=== PATIENT | male | born 1955 | race Caucasian/White ===

== ENCOUNTER 2017-09-26 02:42 | Inpatient (IN) | payer OTHER ==
[~2017-09-26] VITALS: Ht 172.7 cm; Wt 129.3 kg
[~2017-09-26 02:42] MED LIST: AMLODIPINE BESYL5 M1 PO; ASPIRIN EC81 M1 PO; DIOVAN160 MG PO; FERROUS SULFAT325 M3 PO
--- NOTE | 2017-09-26 12:19 | Admission Core Measures ---
Acute Coronary Syndrome (CM) ACS Core Measures Acute Coronary Syndrome Diagnosis No Congestive Heart Failure (NEW) CHF Core Measures Congestive Heart Failure Diagnosis No Cerebrovascular Accident CVA Core Measures CVA/TIA Diagnosis No Venous Thromboembolism VTE Core Isael (View Protocol) VTE Risk Factors Surgery No Mechanical VTE Prophylaxis d/t N/A MechProphylax Ordered No VTE Pharm Prophylaxis d/t NA PharmProphylax ordered Problem List As ranked by this Provider includes Assessment & Plan 1. Primary osteoarthritis of left knee HOME MEDS Home Med List Amlodipine Besylate 5 MG TABLET 1 TAB PO DAILY BP (Reported) Aspirin (Ecotrin*) 81 MG TABLET.DR 1 TAB PO DAILY HEART/BLOOD (Reported) Ferrous Sulfate 325 MG (65 MG IRON) TABLET 1 TAB PO DAILY SUPPLEMENT ( Reported) Valsartan (Diovan) 160 MG TABLET 1 TAB PO DAILY HEART/BP (Reported)
--- NOTE | 2017-09-26 12:22 | Surgical Discharge Summary ---
Visit Information Visit Dates Admission Date: 09/26/17 Discharge Date: 09/28/17 History of Present Illness Chief Complaint: Left knee pain Medical History Isolation History: Standard Surgical History Pertinent Surgical History: L TKR on 09/26/17 Psychosocial History What is Your Primary Language? Estonian Review of Systems: Refer to H&P Hospital Course Course Attending Physician: Sarah PARIS,Jeff Primary Care Physician: Joyce Lim MD Hospital Course: Patient presented to [facility] for an elective left total knee replacement by Dr. Frias on 09/26/17. Patient tolerated the procedure and was brought to the PACU in stable condition. Post op he was seen and evaluated by PT. His vitals remained stable, he was voiding without difficulty, tolerating a diet and was cleared for discharge. Allergies: Coded Allergies: NO KNOWN ALLERGIES (NONE 09/26/17) Significant Procedures: Left total knee replacement on 09/26/17 Disposition Summary Disposition Principal Diagnosis: Left knee OA Additional Diagnosis: HIRAM s/p L TKR Discharge Disposition: home health services Discharge Instructions General Discharge Information Code Status: Full Code Patient's Diet: Regular Patient's Activity: WBAT w/ RW as needed Follow-Up Instructions/Appts: 1-[address] Frias Medications at Discharge Discharge Medications: Stop taking the following medications: Aspirin (Ecotrin*) 81 MG TABLET. ORAL DAILY Continue taking these medications: Valsartan (Diovan) 160 MG TABLET 1 Tablet ORAL DAILY Amlodipine Besylate (Amlodipine Besylate) 5 MG TABLET 1 Tablet ORAL DAILY Ferrous Sulfate (Ferrous Sulfate) 325 MG (65 MG IRON) TABLET 1 Tablet ORAL DAILY Start taking the following new medications: Apixaban (Eliquis) 2.5 MG TABLET 2.5 Milligram ORAL TWICE DAILY Qty = 60 No Refills Hydromorphone HCl (Hydromorphone HCl) 2 MG TABLET 2-4 Milligram ORAL EVERY 3 HOURS NEEDED as needed for PAIN SCALE Qty = 30 No Refills
--- NOTE | 2017-09-26 12:23 | Patient Discharge Instructions ---
Discharge Instructions General Discharge Information You were seen/treated for: Left knee osteoarthritis You had these procedures: Left total knee replacement on 09/26/17 Watch for these problems: Increased pain, fever > 101.3, redness or drainage from incision or inability to bear weight Other wound care: Keep incisions clean and dry May shower, no bathing or soaking Special Instructions: Take pain medication as needed. You may need a stool softener such as Colace or MiraLAX or senna as pain medication can cause constipation. You will need to be on Eliquis twice per day for prevention of blood clots. Do not take aspirin while you are on the Eliquis. You may start the aspirin when you are 1 month course of Eliquis is completed Diet Continue normal diet: Yes Activity Activity Self Limited: Yes Activity Limited to: Weight bear as tolerated Other activity limits: Use rolling walker as needed Acute Coronary Syndrome Inclusion Criteria At DC or during hospital stay patient has or had the following: ACS DIAGNOSIS No Discharge Core Measures Meds if any: Prescribed or Continued at Discharge Meds if any: NOT Prescribed or Continued at Discharge Congestive Heart Failure Inclusion Criteria At DC or during hospital stay patient has or had the following: CHF DIAGNOSIS No Discharge Core Measures Meds if any: Prescribed or Continued at Discharge Meds if any: NOT Prescribed or Continued at Discharge Cerebrovascular accident Inclusion Criteria At DC or during hospital stay patient has or had the following: CVA/TIA Diagnosis No Discharge Core Measures Meds if any: Prescribed or Continued at Discharge Meds if any: NOT Prescribed or Continued at Discharge Venous thromboembolism Inclusion Criteria VTE Diagnosis No VTE Type NONE VTE Confirmed by (Test) NONE Discharge Core Measures - Per Current guidelines, there needs to be overlap - treatment for the first 5 days of Warfarin therapy. - If discharged on Warfarin prior to 5 days of - overlap therapy, the patient will need to be - assessed for post discharge needs including - *Post discharge parental anticoagulation - *Warfarin and/or parental anticoagulation education - *Follow up date to check INR post discharge At least 5 days overlap therapy as Inpatient No Meds if any: Prescribed or Continued at Discharge Note: Overlap Therapy is Warfarin and Anticoagulant Meds if any: NOT Prescribed or Continued at Discharge
[2017-09-26 14:15] VITALS: BP 122/62
--- NOTE | 2017-09-26 15:57 | Operative Report ---
Operative/Inv Procedure Report Surgery Date: 09/26/17 Name of Procedure: Left total knee arthroplasty Pre-Operative Diagnosis: Left knee primary osteoarthritis Post-Operative Diagnosis: Same Estimated Blood Loss: scant Surgeon/Core Fitter: Sarah PARIS,Anuj Aguilar PA Anesthesia: moderate sedation, block Implants: Striker triathlon total knee system-size 5 femur, size 5 tibia, 9 mm cruciate retaining polyethylene, 31 patella Drains: None Specimens: femoral, tibial patellar bone Microbiology: Urine Tourniquet: This 62 minutes Complications: None Condition: Stable Operative Indication: This patient is a 62-year-old man who has a long history of left knee pain following a work injury. Treatment had been conservative up until recently and included medications injection and therapy. Unfortunately, patient had increasing symptoms that interfere with normal activities of daily living. His diagnosis was knee injury strain superimposed on underlying degenerative changes. He had advancing osteoarthritis in follow-up after the injury. He failed conservative measures and wished to proceed with total knee arthroplasty. Risks, benefits and expectations of surgical procedure were discussed with the patient which included but were not limited to persistent knee pain, need for subsequent surgery, infection, DVT, injury to blood vessel or nerve, anesthesia risks. Operative/Procedure Note Note: Patient was brought to the operating room and transferred to the operating table. Once under appropriate anesthesia the left lower extremity was prepped and draped in standard fashion. Preoperative IV antibiotics were given prophylactically. A standard anterior incision was made after the leg was elevated, exsanguinated and tourniquet was inflated to 300 mm of pressure. Incision was taken down sharply to the underlying retinaculum. A medial retinacular approach with a minimal extension into the quadriceps tendon was performed. Degenerative changes were noted in the medial compartment which was end-stage and degenerative changes were noted in the medial/lateral facets of the patella and moderate changes in the lateral compartment. Osteophytes were excised. Dissection was taken on the medial corner of the tibia. Remnants of the medial and lateral meniscal tissues anteriorly were excised. Remnants of the ACL was excised. Retractors were placed and the knee was flexed and the patella was subluxed. I used the drill to enter the intramedullary canal for the intramedullary guide for the distal femoral cut. The cutting block was pinned in place for a 6 valgus cut. The cut was made while protecting the soft tissues. The femur was incised to a size 5. Size 5 cutting block was pinned in place and the cuts were made. I then turned my attention to the tibia. The external tibial alignment guide was placed and the tibia was subluxed forward using the PCL retractor. The medial lateral retractors were left in place. Remnants of the degenerative medial and lateral to this meniscal tissues were excised. The PCL was recessed for balancing purposes. The cutting block was pinned in place for a neutral cut from medial to lateral and reproducing patient 's posterior slope based on preoperative templating and intraoperative measurements. The cut was made while protecting the soft tissues. The tibia was incised to a size 5. I did a trial reduction with a size 5 tibia size 5 femur and a 9 mm polyethylene. Full extension. Good mid flexion stability. Full flexion to gravity. I then measured the patella. Appropriate thickness was removed and then replaced with a size 31 patella. 3 lug holes were drilled. Patellar tracking was excellent. This would be confirmed after tourniquet was deflated. The instruments were removed from the knee. This was followed by finishing the tibial preparation with the tibial punch with the appropriate rotation which was marked from her previous trialing. The 2 lug holes were drilled in the femur. All components were removed. Copious irrigation of the knee followed. Cement was being mixed on the back table. Once it was ready was applied to the dry clean bony surfaces of the tibia. The size 5 tibial component was impacted in place and excess cement was removed with curettes. Cement was applied to the dry clean bony surfaces of the femur. The size 5 femur was impacted in place and excess cement was removed with curettes. Cement was applied to the dry clean bony surfaces of the patella. The size 31 patella was impacted in place and excess cement was removed with a knife. Once cement hardened I took the knee through range of motion. Excess cement was removed with a small osteotome. I was satisfied with the stability with a 9 mm cruciate retaining polyethylene. I removed the trial polyethylene. Copious irrigation of the tibial tray followed. I made sure there was no remaining soft tissue, bone fragments or cement fragment within the tibial tray. I then impacted the definitive size 9 mm cruciate retaining polyethylene and the locking mechanism was confirmed. Copious irrigation the knee followed. Tourniquet was deflated at 62 minutes. Hemostasis was obtained. There was no need for a drain. I then closed the retinacular incision with interrupted #1 Vicryl suture. Every level of closure was followed by copious irrigation. Subcutaneous tissues closed in 2 layers with 2-0 Vicryl and skin was closed with a running 3-0 Vicryl suture with the knee in flexion. Appropriate dressings were applied and patient was awakened and taken the recovery room in good condition. No intraoperative complications. Blood loss was minimal Discharge Disposition: PACU
[2017-09-26 15:59] VITALS: BP 122/78
--- NOTE | 2017-09-26 16:01 | PN- Orthopedic ---
Subjective Subjective: POST-OP CHECK pt in bed, minimal pain well-controlled with oral medication. Denies nausea, toelrating diet. foely in place. has not been OOB yet. Denies paresthesias Denies CP/SOB Objective Vital Signs and I&Os Vital Signs Date Time Temp Pulse Resp B/P B/P Pulse O2 O2 Flow FiO2 Mean Ox Delivery Rate 09/26 1414 97.4 58 18 122/62 96 Room Air Intake & Output 09/26 0000 09/25 1600 09/25 0000 Intake Total Output Total Balance Patient 285 lb Weight Physical Exam: gen- NAD resp- clear caridac-RRR abd-obese, soft, NT ext- left knee wrapped with kash bandage, dressing clean and dry. no calf tenderness. distal sensory and motor function intact Current Medications: Current Medications Sig/Karla Start time Last Medication Dose Route Stop Time Status Admin Acetaminophen 0 .STK-MED ONE 09/26 840 DC PO Acetaminophen 650 MG ONCE 09/26 0000 DC PO 09/26 235 Amlodipine Besylate 5 MG DAILY 09/27 899 AC PO Apixaban 2.5 MG BID 09/27 899 AC PO Celecoxib 400 MG DAILY 09/27 899 AC PO Celecoxib 400 MG ONCE 09/26 0000 DC PO 09/26 235 Dexamethasone 0 .STK-MED ONE 09/27 0743 DC .ROUTE Dexamethasone 10 MG ONCE 09/26 0000 DC IV 09/26 235 Dextrose/Lactated 1,000 ML Q13H 09/26 1415 AC 09/26 Ringer's IV 1425 Docusate Sodium 100 MG DAILY NEEDED PRN 09/26 1415 AC PO Gabapentin 300 MG ONCE 09/26 0000 DC PO 09/26 235 Losartan Potassium 50 MG DAILY 09/27 899 AC PO Midazolam HCl 0 .STK-MED ONE 09/26 1021 DC .ROUTE Midazolam HCl 0 .STK-MED ONE 09/26 906 DC .ROUTE Morphine Sulfate 2 MG Q3P PRN 09/26 1415 AC 09/26 IV 1551 Morphine Sulfate 4 MG Q3P PRN 09/26 1415 AC IV Ondansetron HCl 4 MG Q6P PRN 09/26 1415 AC IV Oxycodone HCl 0 .STK-MED ONE 09/26 840 DC PO Oxycodone HCl 10 MG ONCE 09/26 0000 DC PO 09/26 235 Oxycodone/ 1 TAB Q4P PRN 09/26 141 AC Acetaminophen PO Oxycodone/ 2 TAB Q4P PRN 09/26 141 AC Acetaminophen PO Polyethylene Glycol 17 GM DAILY NEEDED PRN 09/26 141 AC PO Scopolamine HBr 0 .STK-MED ONE 09/26 0840 DC TOP Scopolamine HBr 1 PAT ONCE 09/26 0000 DC TOP 09/26 2358 Senna/Docusate Sodium 2 TAB AT BEDTIME NEED.. 09/26 141 AC PO Vancomycin HCl 2,000 MG ONCE ONE 09/26 2200 AC Sodium Chloride 500 ML IV 09/26 2358 Vancomycin HCl 2,000 MG ONCE 09/26 0000 DC Sodium Chloride 500 ML IV 09/26 2358 Assessment/Plan Assessment/Plan 62yo obese M with hypertension SP L TKA POD0. stable pain management bowel regimen PT- wbat w rw reg diet- IVF overnight FU AM labs reg home meds dvt ppx- eliquis dressing change to be done POD2 dc planning- likely will stay 2-3 nights Core Measures Venous Thromboembolism VTE Risk Factors Surgery No Mechanical VTE Prophylaxis d/t N/A MechProphylax Ordered No VTE Pharm Prophylaxis d/t NA PharmProphylax ordered
[2017-09-26 18:00] VITALS: BP 100/60
[2017-09-26 20:00] VITALS: BP 126/70
[2017-09-27 00:05] VITALS: BP 136/70
[2017-09-27 04:15] VITALS: BP 114/71
[2017-09-27 08:01] VITALS: BP 118/71
--- NOTE | 2017-09-27 08:19 | PN- Orthopedic ---
See Addendum Subjective Subjective: No acute events overnight. Patient states that he is having a lot of pain in the anterior portion of the knee, the Percocet is no help, the morphine does not last more than 2 hours. Objective Vital Signs and I&Os Vital Signs Date Time Temp Pulse Resp B/P B/P Pulse O2 O2 Flow FiO2 Mean Ox Delivery Rate 09/27 0415 97.6 60 18 114/71 91 Room Air 09/27 0005 98.3 64 18 136/70 91 Room Air 09/26 2000 97.7 62 18 126/70 97 Room Air 09/26 1800 98.0 64 18 100/60 95 Room Air 09/26 1559 98.2 57 18 122/78 98 Room Air 09/26 1415 97.4 58 18 122/62 96 Room Air Intake & Output 09/27 1600 09/27 0800 09/27 0000 09/26 1600 09/26 0800 09/26 0000 Intake Total 720 540 Output Total 450 500 Balance 270 40 Intake, IV 600 300 Intake, Oral 120 240 Output, Urine 450 500 Patient 285 lb Weight Physical Exam: Well-developed well-nourished no apparent distress. HEENT: Atraumatic, extraocular motion intact Neck: Supple, no lymphadenopathy Respiratory: No respiratory distress Extremities: No edema LEFT lower extremity dressing in place, Dressing clean dry and intact Compression wrap in place. ALPS in place Neurovascularly intact distally Bilateral calves are supple, nontender. Neuro: Alert and oriented x3 Psych: Mood affect normal, normal memory normal judgment. Skin: Warm and dry, no rash on exposed skin Results Last 48 Hours of Labs: Laboratory Tests 09/27 0720 Chemistry Sodium Pending Potassium Pending Chloride Pending Carbon Dioxide Pending Anion Gap Pending BUN Pending Creatinine Pending BUN/Creatinine Ratio Pending Hematology CBC w Diff Pending WBC Pending RBC Pending Hgb Pending Hct Pending MCV Pending MCH Pending MCHC Pending RDW Pending Plt Count Pending MPV Pending Assessment/Plan Assessment/Plan Postop day #1 status post left total knee arthroplasty Perioperative antibiotics. DC Percocet due to ineffectiveness, start Dilaudid p.o. Out of bed Physical therapy, weightbearing as tolerated DC IV fluids DC Rodriguez catheter, due to void Regular diet Follow a.m. labs, monitor for acute blood loss anemia and electrolyte abnormalities Eliquis for DVT prophylaxis ALPS for DVT prophylaxis Regular home meds Dressing change postop day 2 Plan for discharge to home in 1-2 days with VNA services Core Measures Venous Thromboembolism VTE Risk Factors Surgery No Mechanical VTE Prophylaxis d/t N/A MechProphylax Ordered No VTE Pharm Prophylaxis d/t NA PharmProphylax ordered
[2017-09-27 08:25] LABS: ABSOLUTE BASOPHIL COUNT 0 /CUMM (0.0-0.2); ABSOLUTE EOSINOPHIL COUNT 0.1 /CUMM (0.0-0.7); ABSOLUTE GRANULOCYTE CT 5.2 /CUMM (1.4-6.5); ABSOLUTE LYMPH COUNT 0.8 /CUMM (1.2-3.4); ABSOLUTE MONOCYTE COUNT 0.9 /CUMM (0.10-0.60); BASOPHIL % 0.4 % (0.0-2.0); EOSINOPHIL % 0.8 % (0-5); GRANULOCYTE % 74.2 % (42.2-75.2); HEMATOCRIT 38.9 % (42-52); MEAN CORPUSCULAR HGB 31.2 PG (27.0-31.0); MEAN CORPUSCULAR HGB CONC 33.8 G/DL (33.0-37.0); MEAN CORPUSCULAR VOLUME 92.3 FL (80.0-94.0); MEAN PLATELET VOLUME 8.9 FL (7.4-10.4); PLATELET COUNT 233 /CUMM (130-400); RBC DISTRIBUTION WIDTH 15.3 % (11.5-14.5); RED BLOOD CELL CT 4.21 /CUMM (4.70-6.10); WHITE BLOOD CELL COUNT 6.9 /CUMM (4.8-10.8)
[2017-09-27 12:16] VITALS: BP 131/85
[2017-09-27 21:52] VITALS: BP 136/72
[2017-09-28 07:04] VITALS: BP 142/76
--- NOTE | 2017-09-28 07:20 | PN- Orthopedic ---
Subjective Subjective: Feels well, much better today than yesterday. Did well with physical therapy. No acute events overnight. No complaints. Objective Vital Signs and I&Os Vital Signs Date Time Temp Pulse Resp B/P B/P Pulse O2 O2 Flow FiO2 Mean Ox Delivery Rate 09/28 0704 98.5 87 18 142/76 94 09/27 2152 99.0 64 18 136/72 93 Room Air 09/27 1216 98.4 60 18 131/85 95 Room Air 09/27 0934 68 118/80 09/27 0801 98.4 62 18 118/71 92 Room Air Intake & Output 09/28 0809/28 0000 09/27 1600 09/27 0800 09/27 0000 09/26 1600 Intake Total 240 480 875 720 540 Output Total 450 450 500 Balance 240 480 425 270 40 Intake, IV 75 600 300 Intake, Oral 240 480 800 120 240 Number 0 Bowel Movements Output, Urine 450 450 500 Patient 285 lb Weight Physical Exam: Well-developed well-nourished no apparent distress. HEENT: Atraumatic, extraocular motion intact Neck: Supple, no lymphadenopathy Respiratory: No respiratory distress Extremities: No edema LEFT lower extremity dressing in place, Incision line is clean dry and intact. No signs of infection. Dressing changed, dry sterile dressing applied Mild joint effusion Range of motion is 0-80. Compression wrap in place. ALPS in place Neurovascularly intact distally Bilateral calves are supple, nontender. Neuro: Alert and oriented x3 Psych: Mood affect normal, normal memory normal judgment. Skin: Warm and dry, no rash on exposed skin Results Last 48 Hours of Labs: Laboratory Tests 09/27 0720 Chemistry Sodium (137 - 145 mmol/L) 138 Potassium (3.5 - 5.1 mmol/L) 4.7 Chloride (98 - 107 mmol/L) 105 Carbon Dioxide (22 - 30 mmol/L) 22 Anion Gap (5 - 16) 11 BUN (9 - 20 mg/dL) 14 Creatinine (0.7 - 1.2 mg/dL) 0.8 Estimated GFR (>60 ml/min) > 60 BUN/Creatinine Ratio (7 - 25 %) 17.5 Hematology CBC w Diff NO MAN DIFF REQ WBC (4.8 - 10.8 /CUMM) 6.9 RBC (4.70 - 6.10 /CUMM) 4.21 L Hgb (14.0 - 18.0 G/DL) 13.1 L Hct (42 - 52 %) 38.9 L MCV (80.0 - 94.0 FL) 92.3 MCH (27.0 - 31.0 PG) 31.2 H MCHC (33.0 - 37.0 G/DL) 33.8 RDW (11.5 - 14.5 %) 15.3 H Plt Count (130 - 400 /CUMM) 233 MPV (7.4 - 10.4 FL) 8.9 Gran % (42.2 - 75.2 %) 74.2 Lymphocytes % (20.5 - 51.1 %) 12.2 L Monocytes % (1.7 - 9.3 %) 12.4 H Eosinophils % (0 - 5 %) 0.8 Basophils % (0.0 - 2.0 %) 0.4 Absolute Granulocytes (1.4 - 6.5 /CUMM) 5.2 Absolute Lymphocytes (1.2 - 3.4 /CUMM) 0.8 L Absolute Monocytes (0.10 - 0.60 /CUMM) 0.9 H Absolute Eosinophils (0.0 - 0.7 /CUMM) 0.1 Absolute Basophils (0.0 - 0.2 /CUMM) 0 Assessment/Plan Assessment/Plan Postop day #2 status post left total knee arthroplasty Stable for discharge home today with VNA services. Continue anticoagulation. Dilaudid for pain as outpatient. Core Measures Venous Thromboembolism VTE Risk Factors Surgery No Mechanical VTE Prophylaxis d/t N/A MechProphylax Ordered No VTE Pharm Prophylaxis d/t NA PharmProphylax ordered
[2017-09-28] MEDS ORDERED: ELIQUIS2.5 M1 PO (07:21)
[2017-09-28] MEDS ORDERED: HYDROMORPHONE HC2 M1 PO (07:21)
[2017-09-28 08:24] VITALS: BP 142/76
--- NOTE | 2017-09-28 10:44 | RADIOLOGY REPORT ---
EXAMINATION: XR KNEE, LEFT CLINICAL INFORMATION: Status post total knee arthroplasty COMPARISON: None TECHNIQUE: Two views of the left knee. FINDINGS: Prosthetic components of the left total knee arthroplasty are appropriately aligned without periprosthetic fracture or abnormal lucency. No component migration. No joint effusion. IMPRESSION: Appropriate alignment of the left total knee arthroplasty without evidence of complications.
== END 2017-09-28 11:38 | disposition home health service (06) | DRG 470 ==
LOC: SDA 02:42 → ENRESERV 13:05 → ENTRNSPT 13:35 → EDTRNSPTSTS 13:56 → 2NB 14:03 → CMPTRNSPT 14:24 → ENPENDDIS 09-28 07:40 → 2NB 09-28 11:38
PROVIDERS: Physician Assistant Surgical
PROC: 0SRD0J9 Replacement of Left Knee Joint with Synthetic Substitute, Cemented, Open Approach (ICD-10-PCS; principal; 2017-09-26)
PROC: 3E0T3BZ Introduction of Anesthetic Agent into Peripheral Nerves and Plexi, Percutaneous Approach (ICD-10-PCS; 2017-09-26)
DX: M17.12 Unilateral primary osteoarthritis, left knee (principal); Z68.41 Body mass index [BMI] 40.0-44.9, adult; I10 Essential (primary) hypertension; E66.9 Obesity, unspecified; Z90.49 Acquired absence of other specified parts of digestive tract
CPT/HCPCS: 2NBSP; 36415; 36592; 73560-LT; 82436; 87086; 97110-GO; 97116-GO; 97161-GP; 97530-GO; C1713; C9290; J1100; J2405; J3370; J7040